=== PATIENT | female | born 1940 | race African-American/Black ===

== ENCOUNTER 2019-01-29 09:47 | Emergency (ER) | payer MEDICARE ==
[~2019-01-29] VITALS: Ht 157.5 cm; Wt 127.3 kg
[2019-01-29 09:55] VITALS: Ht 157.5 cm; Wt 127.3 kg
[2019-01-29] MEDS ORDERED: COZAAR25 MG PO (10:18)
[2019-01-29] MEDS ORDERED: COREG6.25 MG PO (10:18)
[2019-01-29] MEDS ORDERED: GABAPENTIN100 MG PO (10:19)
[2019-01-29] MEDS ORDERED: GLUCOPHAGE1000 MG PO (10:19)
[2019-01-29] MEDS ORDERED: GLUCOTROL 5 MG T5 MG PO (10:19)
[2019-01-29] MEDS ORDERED: ULTRAM50 MG PO (10:20)
[2019-01-29] MEDS ORDERED: ZOFRAN4 MG PO (10:20)
[2019-01-29 10:51] LABS: BASOPHILS 0.7 % (0-2); EOSINOPHILS 3.1 % (0-7); HEMATOCRIT 33.1 % (36.0-48.0); IMMATURE GRANULOCYTES 0.2 % (0-5); LYMPHOCYTES 27.9 % (15-50); MCH 29.3 pg (26.0-34.0); MCHC 33.2 g/dL (31.0-37.0); MEAN PLATELET VOLUME 9.5 fL (7.4-10.4); MONOCYTES 9.4 % (2-11); NEUTROPHILS 58.7 % (40-80); PLATELET COUNT 249 10x3/uL (130-400); RBC 3.76 10x6/uL (4.00-5.40); RDW 13.4 % (11.5-14.5); WBC 6.1 10x3/uL (4.8-10.8)
[2019-01-29 11:03] LABS: ALKALINE PHOSPHATASE 112 U/L (46-116); ALT (SGPT) 13 U/L (10-68); BILIRUBIN - TOTAL 0.21 mg/dL (0.2-1.3); CALC OSMOLALITY 284 mosm/kg (275-300); CALCIUM 8.6 mg/dL (8.5-10.1); CHLORIDE - SERUM 106 mmol/L (98-107); CREATININE - SERUM 1.3 mg/dL (0.6-1.3); GLUCOSE 116 mg/dL (74-106); PROTEIN - SERUM 7.5 g/dL (6.4-8.2); SODIUM 142 mmol/L (136-145); UREA NITROGEN 16 mg/dL (7-18); eGFR NON AFRICAN AMERICAN 42 mL/min (90-120)
[2019-01-29 11:05] LABS: INR 1.05 (0.85-1.17); PROTIME 13.2 SECONDS (11.6-15.0)
[2019-01-29 11:14] LABS: CKMB 1.2 U/L (0.0-3.6); CREATINE KINASE 62 UL (21-215); MAGNESIUM - SERUM 1.7 mg/dL (1.8-2.4); THYROID STIMULATING HORMONE 2.72 uIU/mL (0.36-3.74); TROPONIN-I < 0.017 ng/mL (0.000-0.060)
[2019-01-29 13:28] VITALS: BP 237/107
== END 2019-01-29 14:08 ==
LOC: D.ER 09:47
PROVIDERS: Family Medicine
DX: G45.9 Transient cerebral ischemic attack, unspecified (principal)

== ENCOUNTER 2020-08-09 09:27 | Emergency (ER) | payer MEDICARE ==
[~2020-08-09] VITALS: Ht 165.1 cm; Wt 109.6 kg
[~2020-08-09 09:27] MED LIST: COREG6.25 MG PO; COZAAR25 MG PO; GABAPENTIN100 MG PO; GLUCOPHAGE1000 MG PO; GLUCOTROL 5 MG T5 MG PO; ULTRAM50 MG PO; ZOFRAN4 MG PO
[2020-08-09 09:47] VITALS: Ht 165.1 cm; Wt 109.6 kg
[2020-08-09 10:10] LABS: CALC OSMOLALITY 288 mosm/kg (275-300); CALCIUM 8.4 mg/dL (8.5-10.1); CARBON DIOXIDE 24.8 mmol/L (21.0-32.0); CHLORIDE - SERUM 112 mmol/L (98-107); CREATININE - SERUM 1.3 mg/dL (0.6-1.3); GLUCOSE 91 mg/dL (74-106); POTASSIUM - SERUM 3.5 mmol/L (3.5-5.1); SODIUM 146 mmol/L (136-145); UREA NITROGEN 8 mg/dL (7-18); eGFR NON AFRICAN AMERICAN 42 mL/min (90-120)
[2020-08-09 10:12] LABS: BASOPHILS 0.4 % (0-2); EOSINOPHILS 4.3 % (0-7); HEMOGLOBIN 10.4 g/dL (12-16); LYMPHOCYTE ABS# 1.61 10x3/uL (1.18-3.74); LYMPHOCYTES 33.1 % (15-50); MCH 30.2 pg (26.0-34.0); MCHC 32.5 g/dL (31.0-37.0); MEAN PLATELET VOLUME 9.3 fL (7.4-10.4); MONOCYTES 6.8 % (2-11); NEUTROPHILS 55.4 % (40-80); RBC 3.44 10x6/uL (4.00-5.40); RDW 13.7 % (11.5-14.5); WBC 4.9 10x3/uL (4.8-10.8)
[2020-08-09 10:13] LABS: PLATELET COUNT 318 10x3/uL (130-400)
[2020-08-09 10:40] LABS: ALBUMIN 2.6 g/dL (3.4-5.0); ALKALINE PHOSPHATASE 82 U/L (30-120); ALT (SGPT) 10 U/L (10-68); BILIRUBIN - TOTAL 0.14 mg/dL (0.2-1.3); CKMB 0.2 U/L (0.0-3.6); CREATINE KINASE 23 UL (21-215); PRO BNP 1897 pg/mL (0-450); PROTEIN - SERUM 7.6 g/dL (6.4-8.2)
[2020-08-09 10:41] LABS: APTT 29.1 SECONDS (22.8-39.4); INR 1.16 (0.85-1.17); PROTIME 13.7 SECONDS (11.6-15.0); TROPONIN-I < 0.017 ng/mL (0.000-0.060)
[2020-08-09] MEDS ORDERED: PROTONIX20 MG PO (10:41)
[2020-08-09 11:57] LABS: BILIRUBIN NEGATIVE (NEGATIVE); KETONE NEGATIVE (NEGATIVE); NITRITE NEGATIVE (NEGATIVE); UDS - AMPHET NEGATIVE QUAL (NEGATIVE); UDS - BARB NEGATIVE QUAL (NEGATIVE); UDS - BENZO NEGATIVE QUAL (NEGATIVE); UDS - COCAINE NEGATIVE QUAL (NEGATIVE); UDS - OPIATE NEGATIVE QUAL (NEGATIVE); UDS - PCP NEGATIVE QUAL (NEGATIVE); UDS - THC NEGATIVE QUAL (NEGATIVE); UROBILINOGEN 4 mg/dL (< 2)
[2020-08-09 11:59] LABS: BACTERIA MODERATE HPF (NONE SEEN); GRANULAR CAST OCC LPF (NONE SEEN); SQUAMOUS EPITHELIAL 0-5 HPF (0-4); WHITE CELLS - URINE OCC HPF (0-4)
[2020-08-09 12:11] LABS: SARS-CoV-2 ANTIGEN NEGATIVE- SARS-COV-2 (NEGATIVE)
[2020-08-09 13:00] VITALS: BP 168/69
== END 2020-08-09 14:41 ==
LOC: D.ER 09:27
PROVIDERS: Emergency Medicine
DX: G45.9 Transient cerebral ischemic attack, unspecified (principal); R41.82 Altered mental status, unspecified; D64.9 Anemia, unspecified; G81.90 Hemiplegia, unspecified affecting unspecified side; E87.0 Hyperosmolality and hypernatremia; E87.2 Acidosis; I50.9 Heart failure, unspecified; E86.0 Dehydration; R00.1 Bradycardia, unspecified; F03.90 Unspecified dementia, unspecified severity, without behavioral disturbance, psychotic disturbance, mood disturbance, and anxiety; E78.5 Hyperlipidemia, unspecified; E11.9 Type 2 diabetes mellitus without complications; I11.0 Hypertensive heart disease with heart failure

== ENCOUNTER 2020-08-15 15:00 | Inpatient (IN) | payer MEDICARE ==
[~2020-08-15] VITALS: Ht 165.1 cm; Wt 129.3 kg
[~2020-08-15 15:00] MED LIST changes: +PROTONIX20 MG PO
[2020-08-15 15:43] LABS: BASOPHILS 0.8 % (0-2); EOSINOPHILS 5.9 % (0-7); HEMATOCRIT 30.5 % (36.0-48.0); LYMPHOCYTES 45.8 % (15-50); MCHC 32.8 g/dL (31.0-37.0); MCV 91.6 fL (80.0-100.0); MEAN PLATELET VOLUME 9.2 fL (7.4-10.4); MONOCYTES 5.6 % (2-11); NEUTROPHIL ABS# 1.65 10x3/uL (1.56-6.13); NEUTROPHILS 41.9 % (40-80); RBC 3.33 10x6/uL (4.00-5.40); RDW 14.1 % (11.5-14.5); WBC 3.9 10x3/uL (4.8-10.8)
[2020-08-15 15:44] LABS: PLATELET COUNT 185 10x3/uL (130-400)
[2020-08-15 15:58] LABS: CALC OSMOLALITY 275 mosm/kg (275-300); CALCIUM 7.8 mg/dL (8.5-10.1); CARBON DIOXIDE 23.8 mmol/L (21.0-32.0); CHLORIDE - SERUM 108 mmol/L (98-107); CREATININE - SERUM 1.1 mg/dL (0.6-1.3); POTASSIUM - SERUM 3.6 mmol/L (3.5-5.1); SODIUM 140 mmol/L (136-145); UREA NITROGEN 9 mg/dL (7-18); eGFR NON AFRICAN AMERICAN 50 mL/min (90-120)
[2020-08-15 16:02] LABS: GLUCOSE 66 mg/dL (74-106)
[2020-08-15 16:10] LABS: APTT 32.3 SECONDS (22.8-39.4); INR 1.13 (0.85-1.17); PROTIME 13.4 SECONDS (11.6-15.0)
[2020-08-15 16:16] LABS: BILIRUBIN NEGATIVE (NEGATIVE); KETONE NEGATIVE (NEGATIVE); NITRITE POSITIVE (NEGATIVE); UROBILINOGEN NORMAL mg/dL (< 2)
[2020-08-15 16:16] LABS: ALBUMIN 2.6 g/dL (3.4-5.0); ALKALINE PHOSPHATASE 87 U/L (30-120); ALT (SGPT) 10 U/L (10-68); BILIRUBIN - TOTAL 0.17 mg/dL (0.2-1.3); CKMB 0.6 U/L (0.0-3.6); CREATINE KINASE 30 UL (21-215); MAGNESIUM - SERUM 1.4 mg/dL (1.8-2.4); PROTEIN - SERUM 6.8 g/dL (6.4-8.2); THYROID STIMULATING HORMONE 1.39 uIU/mL (0.36-3.74); TROPONIN-I < 0.017 ng/mL (0.000-0.060)
[2020-08-15 16:18] LABS: BACTERIA MANY HPF (NONE SEEN); SQUAMOUS EPITHELIAL 0-5 HPF (0-4); WHITE CELLS - URINE >50 HPF (0-4)
[2020-08-15 21:31] VITALS: BP 121/45
--- NOTE | 2020-08-15 21:35 | NUR ---
PATIENT CLEAN AND DRY AT THE TIME OF TRANSFER. BP WNL
[2020-08-16] VITALS (7 sets, daily range): BP systolic 129–183; BP diastolic 69–90; Ht 165.1 cm; Wt 129.3 kg
--- NOTE | 2020-08-16 00:30 | NUR ---
RECEIVED PT FROM ER VIA BED. PT CONFUSED, ORIENTATED TO SELF ONLY. PIV TO RIGHT FORARM, PATENT AND INFUSING, NO REDNESS OR SWELLING. CONTRACTURE TO LEFT ARM, SPLINT IN PLACE. BED ALARM ON, CL IN REACH.
[2020-08-16 06:55] LABS: BASOPHILS 0.5 % (0-2); EOSINOPHILS 3.5 % (0-7); HEMATOCRIT 30.1 % (36.0-48.0); HEMOGLOBIN 9.8 g/dL (12-16); IMMATURE GRANULOCYTES 0.2 % (0-5); LYMPHOCYTE ABS# 1.79 10x3/uL (1.18-3.74); LYMPHOCYTES 30.2 % (15-50); MCH 29.7 pg (26.0-34.0); MCHC 32.6 g/dL (31.0-37.0); MCV 91.2 fL (80.0-100.0); MEAN PLATELET VOLUME 9.8 fL (7.4-10.4); MONOCYTES 6.9 % (2-11); NEUTROPHIL ABS# 3.47 10x3/uL (1.56-6.13); NEUTROPHILS 58.7 % (40-80)
[2020-08-16 07:03] LABS: ALBUMIN 2.4 g/dL (3.4-5.0); ANION GAP 11.4 mmol/L (8-16); BILIRUBIN - TOTAL 0.21 mg/dL (0.2-1.3); CALCIUM 8.3 mg/dL (8.5-10.1); CARBON DIOXIDE 24.9 mmol/L (21.0-32.0); POTASSIUM - SERUM 3.3 mmol/L (3.5-5.1); PROTEIN - SERUM 6.9 g/dL (6.4-8.2)
[2020-08-16 07:07] LABS: PLATELET COUNT 343 10x3/uL (130-400); WBC 5.9 10x3/uL (4.8-10.8)
--- NOTE | 2020-08-16 09:00 | NUR ---
RECIEVED BEDSIDE REPORT. PATIENT REMOVED HER PURWICK. ALSO HAD A BOWEL MOVEMENT. CLEANED PATIENT UP AND PLACED A NEW PURWICK. BED LOW POSITION, CALL LIGHT IN REACH. WILL CONITNUE TO MONITOR.
--- NOTE | 2020-08-16 14:13 | NUR ---
PT IN BED. IV INFUSING PER MAR. BED LOW POSITION, CALL LIGHT IN REACH. BED ALARM ON. WILL CONTINUE TO MONITOR.
--- NOTE | 2020-08-16 20:00 | NUR ---
PT SITTING UP IN BED WITHOUT DISTRESS, SIPPING ON WATER. FOLLOWS COMMANDS. CONFUSED TO PLACE, TIME, SITUATION. BED ALARM ON. CL IN REACH
[2020-08-17] VITALS: BP 188/66
[2020-08-17 04:00] VITALS: BP 166/73; BP 188/66
--- NOTE | 2020-08-17 07:28 | NUR ---
RECIEVED BEDSIDE REPORT. IN BED RESTING AROUSES TO VOICE. CONFUSED TO TIME, PLACE, AND SITUATION. BED LOW POSITION, CALL LIGHT IN REACH. IFEANYI ALARM ON. WILL CONTINUE TO MONITOR.
[2020-08-17 08:21] VITALS: BP 191/74
--- NOTE | 2020-08-17 09:25 | NUR ---
ATTEMPTED TO GIVE PATIENT ORAL PILLS FIVE TIMES. NOT SUCCESSFUL. PATIENT REFUSED TO OPEN MOUTH TO TAKE PILLS AND KEPT COVERING HER MOUTH WITH HER HAND.
[2020-08-17 12:42] VITALS: BP 211/95
--- NOTE | 2020-08-17 14:35 | NUR ---
IN BED. RESTING. BED LOW POSITION, CALL LIGHT IN REACH. WILL CONTINUE TO MONITOR.
[2020-08-17 17:39] VITALS: BP 178/67
--- NOTE | 2020-08-17 19:28 | NUR ---
PATIENT COUGHING, SAT UP SHE COUGHED UP CHEWED FOOD. AIRWAY CLEAR. NO SIGNS OF DISTRESS. IV CATH INFILTRATED, REMOVED CATH TIP INTACT. NIGHT NURSE IN ROOM.
--- NOTE | 2020-08-17 19:45 | NUR ---
RECEIVED BEDSIDE REPORT. PT LAYING IN BED, CONFUSED, ORIENTATED TO SELF ONLY. LEFT ARM CONTRACTURE, SPLINT IN PLACE. PT BEDFAST AND TOTAL CARE. BED LOW, ALARM ON, CL IN REACH.
[2020-08-17 20:00] VITALS: BP 155/80
[2020-08-18] VITALS: BP 136/72
--- NOTE | 2020-08-18 03:17 | NUR ---
BATHED PT, CHAPERON ASSISTED. PT TOLERATED WELL, BED LOW, ALARM ON, CL IN REACH.
[2020-08-18 06:07] LABS: BASOPHILS 0.6 % (0-2); EOSINOPHILS 3.3 % (0-7); HEMATOCRIT 29.2 % (36.0-48.0); HEMOGLOBIN 9.2 g/dL (12-16); IMMATURE GRANULOCYTES 0.2 % (0-5); LYMPHOCYTE ABS# 1.98 10x3/uL (1.18-3.74); LYMPHOCYTES 38.9 % (15-50); MCH 29.6 pg (26.0-34.0); MCHC 31.5 g/dL (31.0-37.0); MCV 93.9 fL (80.0-100.0); MEAN PLATELET VOLUME 9.7 fL (7.4-10.4); MONOCYTES 8.1 % (2-11); NEUTROPHIL ABS# 2.49 10x3/uL (1.56-6.13); NEUTROPHILS 48.9 % (40-80); PLATELET COUNT 356 10x3/uL (130-400); RBC 3.11 10x6/uL (4.00-5.40); RDW 14.4 % (11.5-14.5); WBC 5.1 10x3/uL (4.8-10.8)
[2020-08-18 06:37] LABS: ALBUMIN 2.4 g/dL (3.4-5.0); ANION GAP 14.3 mmol/L (8-16); BILIRUBIN - TOTAL 0.17 mg/dL (0.2-1.3); CALCIUM 8.3 mg/dL (8.5-10.1); CARBON DIOXIDE 22.5 mmol/L (21.0-32.0); CREATININE - SERUM 1.2 mg/dL (0.6-1.3); POTASSIUM - SERUM 3.8 mmol/L (3.5-5.1); PROTEIN - SERUM 6.8 g/dL (6.4-8.2)
[2020-08-18 08:02] VITALS: BP 90/57
--- NOTE | 2020-08-18 11:12 | NUR ---
IV RESITED TO PT LEFT UPPER ARM. 22G 1 STICK PATIENT TOLERATED WELL, RESTARTED FLUIDS AT KVO DUE TO PT HX OF CHF. CONTINUE WITH PLAN OF CARE
--- NOTE | 2020-08-18 14:05 | NUR ---
Nutrition follow-up: Diet order: consistent CHO PO intake 75-100% of meals Labs reviewed Wt: 285# Pt with good po intake at this time; however, pt still with chewing, swallowing issues. Recommend: Swallow evaluation Follow-up: 08/21/20
[2020-08-18 14:10] VITALS: BP 182/65
[2020-08-18] MEDS ORDERED: LEVOFLOXAC500 MG/100 PO (17:18)
--- NOTE | 2020-08-18 20:30 | NUR ---
RESTING QUEITLY WITH NO DISTRESS NOTED. INCONTINENT OF URINE. LINENS CHANGED.PATIENT IS COMBATIVE WITH CARE. IV TO LEFT ARM INTACT WITHOUT REDNESS OR EDEMA NOTED. LEFT ARM CONTRACTED WITH BRACE INTACT.
[2020-08-18 20:32] VITALS: BP 221/92
[2020-08-19 01:17] VITALS: BP 190/61
[2020-08-19 05:31] VITALS: BP 117/63
[2020-08-19 08:07] VITALS: BP 138/46
--- NOTE | 2020-08-19 08:23 | NUR ---
PT LAYING IN BED RESTING WITH EYES CLOSED, AROUSE TO VOICE, REFUSED MEDICATIONS, TRIED TO PUT THEM IN APPLE SAUCE PT STILL REFUSED, KEPT PUSHING MY HAND AWAY AND COVERING MOUTH WITH BLANKETS
[2020-08-19] MEDS ORDERED: LEVOFLOXACIN500 MG PO (08:30)
--- NOTE | 2020-08-19 10:36 | NUR ---
CALLED [employer], ETA OF 30 MIN, CALLED THE [facility], GAVE REPORT TO CHRISSY JESUS, AIDS GETTING PT CLEANED UP NOW,
--- NOTE | 2020-08-19 10:53 | NUR ---
IV REMOVED, TIP INTACT
--- NOTE | 2020-08-19 11:37 | NUR ---
PT LEFT VIA STRETCHER ACCOMPLANIED BY [facility] AT [facility] TO BE TAKEN TO THE [facility]
--- NOTE | 2020-08-19 16:28 | MORECARE ---
CASE MANAGEMENT DISCHARGE SUMMARY PATIENT: NATALY VELAZQUEZ UNIT: [id number] ADM DATE: 08/15/20 AGE: 80 : 39 SEX: F ROOM/BED: D.2234 AUTHOR: RICHARD,DOC PHYSICIAN: REFERRING PHYSICIAN: JUANJO PENDLETON MD DATE OF SERVICE: 08/19/20 Case Management Discharge Planning Summary CT Patient Name: NATALY VELAZQUEZ Attending MD : DILLAN- Medical Record: [id number] Encounter : [id number] Facility : [address] [place] [address] Medical Admission Date : 118:42 Center Discharge Date : 08/19/[address] [place] [address] Date of : DC Plan ID : [id number] Age/Sex/Martia : 80/ F/W Printed on : 08/19/20 16:27 CT DCP Review Details Anticipated D/C: 08/19/2020 Expected LOS : 4 Case Status : INITIATED - Initial Reviewe: [id number] - Hernan Zimmerman Initial Review: 08/15/2020 Planned Disposi: 03 - Discharged/Trans to SNF with Medicare Certification in Anticipation of Skilled Care Final Discharge: - Final Reviewer : : Final Review : Comments CT Entered Date Type Reviewer 08/19/20 16:19 CT Discharge Planning Hernan Zimmerman Comment RETURN to The [facility]. Patient is AMS. Telephone conversation with ed Lao of patient at 0943 on 19 August 2020 to complete DC plan and needs. Patient lives at the [facility]. Kasi consents to the Patient returning to the [facility] and feels this is a safe Discharge. Kasi voiced no other needs at this time and is satisfied with DC plan. Transportation provider at discharge will be with EMS. Spoke with Jcarlos at the [facility]. Patient is ok for return today. LAURA for the [facility] telephonically signed and placed in chart. DC IMM telephonically explained, signed, and placed on chart. Copy of DC IMM will be placed in the DC paperwork. CM will continue to follow and will assist as needed with dc plans/needs. DCP Focus Questions & Answers DCP Screen Age: 80 + Prior living environment: Lives in facility DCP Evaluation Patient's ability to cope with chronic illness d. No chronic illness Would patient like to participate in any Care Not applicable Coordination programs (if applicable): Mental health screen: No mental health history DCP Re-evaluation Would patient like to participate in any Care Not applicable Coordination programs (if applicable): [facility] NATALY VELAZQUEZ MR#: [id number] /Age/Sex/Ymybvf38-Yxh-57 /80/F /W Attending Physician Name: [id number] Patient Account:[id number] [facility] Page -1 of 1 All edits/amendments must be made on the electronic document DICTATION DATE: 08/19/201626 AIRPORT TRAFFIC CONTROLLER: YARELI 08/19/20 162 RPT#: [id number] DC DATE:08/19/20 STATUS: DIS IN [facility] [address] [place] [address] END OF REPORT
--- NOTE | 2020-08-19 16:46 | MORECARE ---
CASE MANAGEMENT DISCHARGE SUMMARY PATIENT: NATALY VELAZQUEZ UNIT: [id number] ADM DATE: 08/15/20 AGE: 80 : 39 SEX: F ROOM/BED: D.2234 AUTHOR: RICHARD,DOC PHYSICIAN: REFERRING PHYSICIAN: JUANJO PENDLETON MD DATE OF SERVICE: 08/19/20 Case Management Discharge Planning Summary CT Patient Name: NATALY VELAZQUEZ Attending MD : DILLAN- Medical Record: [id number] Encounter : [id number] Facility : [address] [place] [address] Medical Admission Date : 118:42 Center Discharge Date : 08/19/[address] [place] [address] Date of : DC Plan ID : [id number] Age/Sex/Martia : 80/ F/W Printed on : 08/19/20 16:44 CT DCP Review Details Anticipated D/C: 08/19/2020 Expected LOS : 4 Case Status : INITIATED - Initial Reviewe: [id number] - Hernan Zimmerman Initial Review: 08/15/2020 Planned Disposi: 03 - Discharged/Trans to SNF with Medicare Certification in Anticipation of Skilled Care Final Discharge: - Final Reviewer : : Final Review : Comments CT Entered Date Type Reviewer 08/19/20 16:19 CT Discharge Planning Hernan Zimmerman Comment RETURN to The [facility]. Patient is AMS. Telephone conversation with ed Mendez of patient at 0943 on 19 August 2020 to complete DC plan and needs. Patient lives at the [facility]. Kasi consents to the Patient returning to the [facility] and feels this is a safe Discharge. Kasi voiced no other needs at this time and is satisfied with DC plan. Transportation provider at discharge will be with EMS. Spoke with Jcarlos at the [facility]. Patient is ok for return today. LAURA for the [facility] telephonically signed and placed in chart. DC IMM telephonically explained, signed, and placed on chart. Copy of DC IMM will be placed in the DC paperwork. CM will continue to follow and will assist as needed with dc plans/needs. DCP Focus Questions & Answers DCP Screen Age: 80 + Prior living environment: Lives in facility DCP Evaluation Patient and/or caregiver agree upon recommended Yes discharge plan? Family / Caregiver's ability to cope with chronic a. Adequate (ability to meet patient's illness: medical needs, ensures patient attends medical appts.) Patient's current cognitive status: Confused Patient gives permission to discuss discharge ED MENDEZ, plans with: (name, relationship and number) Patient's ability to cope with chronic illness d. No chronic illness Does the patient have the ability to pay for or Yes attain post discharge needs / services? Functional screen assessment: Unable to manage ADLs without immediate ongoing assistance Family / Caregiver's ability to cope with chronic a. Adequate (ability to meet patient's illness: medical needs, ensures patient attends medical appts.) Physical Status: Total care dependent Equipment needed for post hospitalization: None Is there a likelihood that the patient will No require additional services to return to the preadmission environment? Living Arrangements: Long Term Facility Patient with capacity for self-care or can be No cared for in same environment as prior to hospitalization? Baseline cognitive status: Confused Physical environment modification needed / No anticipated for discharge: Facility / Agency name and contact information [facility] / from Question 3 (if applicable): Non-Affiliated [facility] - [phone] Planned post hospital services available for Yes patient? Pharmacy name(s): [facility] Planned post hospital services covered by Yes insurance plan? Does Patient have transportation to get home and Yes to follow-up medical appointments when discharged from the hospital? Would patient like to participate in any Care Not applicable Coordination programs (if applicable): Does the patient have electricity at home? Yes Does the patient have running water in their Yes house? Other Equipment comments: DME AT THE [facility] screen: No mental health history DCP Re-evaluation Would patient like to participate in any Care Not applicable Coordination programs (if applicable): [facility] NATALY VELAZQUEZ MR#: [id number] /Age/Sex/Mkoxsd64-Ngv-82 /80/F /W Attending Physician Name: [id number] Patient Account:[id number] [facility] Page -1 of 1 All edits/amendments must be made on the electronic document DICTATION DATE: 08/19/201643 SLEEVE SETTER LOCKSTITCH: YARELI 08/19/201643 RPT#: [id number] DC DATE:08/19/20 STATUS: DIS IN [facility] [address] [place] [address] END OF REPORT
--- NOTE | 2020-08-19 17:57 | MORECARE ---
CASE MANAGEMENT DISCHARGE SUMMARY PATIENT: NATALY VELAZQUEZ UNIT: [id number] ADM DATE: 08/15/20 AGE: 80 : 39 SEX: F ROOM/BED: D.2234 AUTHOR: RICHARD,DOC PHYSICIAN: REFERRING PHYSICIAN: JUANJO PENDLETON MD DATE OF SERVICE: 08/19/20 Case Management Discharge Planning Summary CT Patient Name: NATALY VELAZQUEZ Attending MD : DILLAN- Medical Record: [id number] Encounter : [id number] Facility : [address] [place] [address] Medical Admission Date : 118:42 Center Discharge Date : 08/19/[address] [place] [address] Date of : DC Plan ID : [id number] Age/Sex/Martia : 80/ F/W Printed on : 08/19/20 17:56 CT DCP Review Details Anticipated D/C: 08/19/2020 Expected LOS : 4 Case Status : INITIATED - Initial Reviewe: [id number] - Hernan Zimmeramn Initial Review: 08/15/2020 Planned Disposi: 03 - Discharged/Trans to SNF with Medicare Certification in Anticipation of Skilled Care Final Discharge: - Final Reviewer : : Final Review : Comments CT Entered Date Type Reviewer 08/19/20 16:19 CT Discharge Planning Hernan Zimmerman Comment RETURN to The [facility]. Patient is AMS. Telephone conversation with ed Mendez of patient at 0943 on 19 August 2020 to complete DC plan and needs. Patient lives at the [facility]. Kasi consents to the Patient returning to the [facility] and feels this is a safe Discharge. Kasi voiced no other needs at this time and is satisfied with DC plan. Transportation provider at discharge will be with EMS. Spoke with Jcarlos at the [facility]. Patient is ok for return today. LAURA for the [facility] telephonically signed and placed in chart. DC IMM telephonically explained, signed, and placed on chart. Copy of DC IMM will be placed in the DC paperwork. CM will continue to follow and will assist as needed with dc plans/needs. DCP Focus Questions & Answers DCP Screen Age: 80 + Prior living environment: Lives in facility DCP Evaluation Patient and/or caregiver agree upon recommended Yes discharge plan? Family / Caregiver's ability to cope with chronic a. Adequate (ability to meet patient's illness: medical needs, ensures patient attends medical appts.) Patient's current cognitive status: Confused Patient gives permission to discuss discharge ED MENDEZ, plans with: (name, relationship and number) Patient's ability to cope with chronic illness d. No chronic illness Does the patient have the ability to pay for or Yes attain post discharge needs / services? Functional screen assessment: Unable to manage ADLs without immediate ongoing assistance Family / Caregiver's ability to cope with chronic a. Adequate (ability to meet patient's illness: medical needs, ensures patient attends medical appts.) Physical Status: Total care dependent Equipment needed for post hospitalization: None Is there a likelihood that the patient will No require additional services to return to the preadmission environment? Living Arrangements: Custodial Facility Patient with capacity for self-care or can be No cared for in same environment as prior to hospitalization? Baseline cognitive status: Confused Physical environment modification needed / No anticipated for discharge: Facility / Agency name and contact information [facility] ([facility]) / from Question 3 (if applicable): Non-Affiliated [facility] - [phone] Planned post hospital services available for Yes patient? Pharmacy name(s): [facility] Planned post hospital services covered by Yes insurance plan? Does Patient have transportation to get home and Yes to follow-up medical appointments when discharged from the hospital? Would patient like to participate in any Care Not applicable Coordination programs (if applicable): Does the patient have electricity at home? Yes Does the patient have running water in their Yes house? Other Equipment comments: DME AT THE [facility] screen: No mental health history DCP Re-evaluation Would patient like to participate in any Care Not applicable Coordination programs (if applicable): [facility] NATALY VELAZQUEZ MR#: [id number] /Age/Sex/Cfnlhx23-Ldu-05 /80/F /W Attending Physician Name: [id number] Patient Account:[id number] [facility] Page -1 of 1 All edits/amendments must be made on the electronic document DICTATION DATE: 08/19/201755 ROCKET MOTOR TESTER: YARELI 08/19/201755 RPT#: [id number] DC DATE:08/19/20 STATUS: DIS IN [facility] [address] [place] [address] END OF REPORT
--- NOTE | 2020-08-21 13:09 | MORECARE ---
CASE MANAGEMENT DISCHARGE SUMMARY PATIENT: NATALY VELAZQUEZ UNIT: [id number] ADM DATE: 08/15/20 AGE: 80 : 39 SEX: F ROOM/BED: D.2234 AUTHOR: RICHARD,DOC PHYSICIAN: REFERRING PHYSICIAN: JUANJO PENDLETON MD DATE OF SERVICE: 08/21/20 Case Management Discharge Planning Summary CT Patient Name: NATALY VELAZQUEZ Attending MD : DILLAN- Medical Record: [id number] Encounter : [id number] Facility : [address] [place] [address] Medical Admission Date : 118:42 Center Discharge Date : 08/19/[address] [place] [address] Date of : DC Plan ID : [id number] Age/Sex/Martia : 80/ F/W Printed on : 08/21/20 13:08 CT DCP Review Details Anticipated D/C: 08/19/2020 Expected LOS : 4 Case Status : INITIATED - Initial Reviewe: [id number] - Hernan Zimmerman Initial Review: 08/15/2020 Planned Disposi: 03 - Discharged/Trans to SNF with Medicare Certification in Anticipation of Skilled Care Final Discharge: - Final Reviewer : : Final Review : Comments CT Entered Date Type Reviewer 08/19/20 16:19 CT Discharge Planning Hernan Zimmerman Comment RETURN to The [facility]. Patient is AMS. Telephone conversation with ed Mendez of patient at 0943 on 19 August 2020 to complete DC plan and needs. Patient lives at the [facility]. Kasi consents to the Patient returning to the [facility] and feels this is a safe Discharge. Kasi voiced no other needs at this time and is satisfied with DC plan. Transportation provider at discharge will be with EMS. Spoke with Jcarlos at the [facility]. Patient is ok for return today. LAURA for the [facility] telephonically signed and placed in chart. DC IMM telephonically explained, signed, and placed on chart. Copy of DC IMM will be placed in the DC paperwork. CM will continue to follow and will assist as needed with dc plans/needs. DCP Focus Questions & Answers DCP Screen Age: 80 + Prior living environment: Lives in facility DCP Evaluation Patient and/or caregiver agree upon recommended Yes discharge plan? Family / Caregiver's ability to cope with chronic a. Adequate (ability to meet patient's illness: medical needs, ensures patient attends medical appts.) Patient's current cognitive status: Confused Patient gives permission to discuss discharge ED MENDEZ, plans with: (name, relationship and number) Patient's ability to cope with chronic illness d. No chronic illness Does the patient have the ability to pay for or Yes attain post discharge needs / services? Functional screen assessment: Unable to manage ADLs without immediate ongoing assistance Family / Caregiver's ability to cope with chronic a. Adequate (ability to meet patient's illness: medical needs, ensures patient attends medical appts.) Physical Status: Total care dependent Equipment needed for post hospitalization: None Is there a likelihood that the patient will No require additional services to return to the preadmission environment? Living Arrangements: [facility] Facility Patient with capacity for self-care or can be No cared for in same environment as prior to hospitalization? Baseline cognitive status: Confused Physical environment modification needed / No anticipated for discharge: Facility / Agency name and contact information [facility] ([facility]) / from Question 3 (if applicable): Non-Affiliated [facility] - [phone] Planned post hospital services available for Yes patient? Pharmacy name(s): [facility] Planned post hospital services covered by Yes insurance plan? Does Patient have transportation to get home and Yes to follow-up medical appointments when discharged from the hospital? Would patient like to participate in any Care Not applicable Coordination programs (if applicable): Does the patient have electricity at home? Yes Does the patient have running water in their Yes house? Other Equipment comments: DME AT THE [facility] screen: No mental health history DCP Re-evaluation Would patient like to participate in any Care Not applicable Coordination programs (if applicable): [facility] NATALY VELAZQUEZ MR#: [id number] /Age/Sex/Gakkki68-Vhn-10 /80/F /W Attending Physician Name: [id number] Patient Account:[id number] [facility] Page -1 of 1 All edits/amendments must be made on the electronic document DICTATION DATE: 08/21/20 1308 GEOPHYSICAL SUPPORT SPECIALIST: YARELI 08/21/20 1308 RPT#: [id number] DC DATE:08/19/20 STATUS: DIS IN [facility] [address] [facility] [address] END OF REPORT
== END 2020-08-19 11:33 | DRG 690 ==
LOC: D.ER 15:00 → D.MS 18:42
PROVIDERS: Emergency Medicine; ADMIT Emergency Medicine; ATTEND Emergency Medicine
DX: N39.0 Urinary tract infection, site not specified (principal); R41.82 Altered mental status, unspecified; D63.1 Anemia in chronic kidney disease; E11.22 Type 2 diabetes mellitus with diabetic chronic kidney disease; I12.9 Hypertensive chronic kidney disease with stage 1 through stage 4 chronic kidney disease, or unspecified chronic kidney disease; N18.9 Chronic kidney disease, unspecified; E11.649 Type 2 diabetes mellitus with hypoglycemia without coma; Z86.73 Personal history of transient ischemic attack (TIA), and cerebral infarction without residual deficits; K21.9 Gastro-esophageal reflux disease without esophagitis; F03.90 Unspecified dementia, unspecified severity, without behavioral disturbance, psychotic disturbance, mood disturbance, and anxiety